=== PATIENT | male | born 1950 | race Caucasian/White ===

== ENCOUNTER 2018-09-01 09:30 | Outpatient (CLI) | payer MEDICARE ==
[2018-09-01] MEDS ORDERED: IPRA15SP NAS (10:23)
[2018-09-01] MEDS ORDERED: SIMV40TA3 PO (10:23)
[2018-09-01] MEDS ORDERED: DILT30TA33 PO (10:23)
[2018-09-01] MEDS ORDERED: HYDROCHLOR EACHEYE (10:23)
[2018-09-01] MEDS ORDERED: HYPR10GE5 EACHEYE (10:23)
[2018-09-01] MEDS ORDERED: [UNRECOGNIZED DRUG - OTHER] PO (10:23)
[2018-09-01] MEDS ORDERED: CARB15DR59 EACHEYE (10:23)
[2018-09-01] MEDS ORDERED: ZOLP12.54 PO (10:23)
[2018-09-01] MEDS ORDERED: CHOL200052 PO (10:23)
[2018-09-01] MEDS ORDERED: ASPI81TA45 PO (10:23)
[2018-09-01] MEDS ORDERED: DILT120C80 PO (10:23)
[2018-09-01 10:53] LABS: BASOPHILS # (AUTO) 0.04 x10^3/uL (0-0.1); BASOPHILS % (AUTO) 1 % (0-1); EOSINOPHILS # (AUTO) 0.07 x10^3/uL (0-0.4); EOSINOPHILS % (AUTO) 1 % (1-7); LYMPHOCYTES # (AUTO) 1.71 x10^3/uL (1-3.4); LYMPHOCYTES % (AUTO) 26 % (22-44); MD NO; MEAN CORPUSCULAR HEMOGLOBIN 30.5 pg (27.5-34.5); MEAN CORPUSCULAR HGB CONC 32.6 g/dL (33.2-36.2); MEAN CORPUSCULAR VOLUME 93.3 fL (81-97); MEAN PLATELET VOLUME 8.5 fL (7.4-10.4); MONOCYTES # (AUTO) 0.87 x10^3/uL (0.2-0.8); MONOCYTES % (AUTO) 13 % (2-9); NEUTROPHILS # (AUTO) 3.98 x10^3/uL (1.8-6.8); NEUTROPHILS % (AUTO) 60 % (42-75); PLATELET COUNT 358 x10^3/uL (130-400); RED BLOOD COUNT 4.51 x10^6/uL (4.38-5.82); RED CELL DISTRIBUTION WIDTH 15.1 % (9.4-14.8)
[2018-09-01 11:27] LABS: CHLORIDE 110 mmol/L (98-107)
[2018-09-01 12:03] LABS: ANION GAP 11 mmol/L (5-15); CALCIUM 8.7 mg/dL (8.5-10.1); CREATININE 0.82 mg/dL (0.7-1.3)
== END 2018-09-01 23:59 | disposition home or self-care (01) ==
LOC: STAR 09:30
PROVIDERS: ATTEND Internal Medicine Cardiovascular Disease
DX: Z01.810 Encounter for preprocedural cardiovascular examination (principal); I48.91 Unspecified atrial fibrillation; Z79.899 Other long term (current) drug therapy
CPT/HCPCS: 36415; 80048; 85025

== ENCOUNTER → 2018-09-01 | Outpatient (CLI) | payer MEDICARE ==
[~2018-09-01] MED LIST: ASPI81TA45 PO; CARB15DR59 EACHEYE; CHOL200052 PO; DILT120C80 PO; DILT30TA33 PO; HYDROCHLOR EACHEYE; HYPR10GE5 EACHEYE; IPRA15SP NAS; OMNIPAQUE 350 MG/ML, 150 ML BOTTLE ONE; SIMV40TA3 PO; ZOLP12.54 PO; [UNRECOGNIZED DRUG - OTHER] PO
== END | disposition home or self-care (01) ==
LOC: CFH 08:16
PROVIDERS: ATTEND Internal Medicine Cardiovascular Disease
DX: K44.9 Diaphragmatic hernia without obstruction or gangrene (principal); I48.91 Unspecified atrial fibrillation; I51.7 Cardiomegaly; Z79.899 Other long term (current) drug therapy
CPT/HCPCS: 71046; 75572; 82565; Q9967

== ENCOUNTER 2018-09-06 06:08 | Observation (INO) | payer MEDICARE ==
[2018-09-01 10:01] VITALS: BP 134/84
[~2018-09-06] VITALS: Ht 167.6 cm; Wt 84.5 kg
[~2018-09-06 06:08] MED LIST changes: -OMNIPAQUE 350 MG/ML, 150 ML BOTTLE ONE
[2018-09-06] MEDS ORDERED: SODIUM CHLORIDE 0.9% 1,000 ML IV SCH (06:15)
[2018-09-06] MEDS ORDERED: SODIUM CHLORIDE 0.9% 1,000 ML IV ONE (06:30)
[2018-09-06] MEDS ORDERED: LIDOCAINE 1%, 20ML ONE (06:51)
[2018-09-06] MEDS ORDERED: PROTAMINE SULFATE 10 MG/ML, 5ML ONE (07:52)
[2018-09-06] MEDS ORDERED: FENTANYL PF 250 MCG/5ML ONE (08:00)
[2018-09-06] MEDS ORDERED: MIDAZOLAM 1 MG/ML, 2ML ONE (08:00)
[2018-09-06] MEDS ORDERED: SUCCINYLCHOLINE 20 MG/ML, 10ML ONE (08:05)
[2018-09-06] MEDS ORDERED: PROPOFOL 10 MG/ML, 20ML ONE (10:09)
[2018-09-06] MEDS ORDERED: ROCURONIUM 10MG/ML,5ML ONE (10:09)
[2018-09-06] MEDS ORDERED: ONDANSETRON 2MG/ML, 2ML ONE (10:10)
[2018-09-06] MEDS ORDERED: HEPARIN 1,000 UNITS/ML, 10ML ONE ×3 (10:10)
[2018-09-06] MEDS ORDERED: DEXAMETHASONE 4 MG/ML, 1ML ONE (10:10)
[2018-09-06] MEDS ORDERED: APIXABAN 5 MG TABLET ONE (12:42)
[2018-09-06] MEDS ORDERED: ZOLPIDEM 10MG TABLET PO PRN (13:00)
[2018-09-06] MEDS ORDERED: PROMETHAZINE 12.5 MG SUPP PR PRN (13:00)
[2018-09-06] MEDS ORDERED: EPHEDRINE 50 MG/ML, 1ML IVPush PRN (13:00)
[2018-09-06] MEDS ORDERED: MORPHINE SULFATE 4 MG/ML, 1ML IVPush PRN (13:00)
[2018-09-06] MEDS ORDERED: FENTANYL PF 100 MCG/2ML IV PRN (13:00)
[2018-09-06] MEDS ORDERED: MEPERIDINE/PF 25MG/0.5ML IVPush PRN (13:00)
[2018-09-06] MEDS ORDERED: DIPHENHYDRAMINE 50 MG/ML, 1ML IVPush PRN (13:00)
[2018-09-06] MEDS ORDERED: OXYcodone 5 MG/5 ML ORAL.SOL UDC PO PRN (13:00)
[2018-09-06] MEDS ORDERED: ONDANSETRON ODT 8 MG PO PRN (13:00)
[2018-09-06] MEDS ORDERED: DIAZEPAM 5 MG/ML, 2ML IVPush PRN (13:00)
[2018-09-06] MEDS ORDERED: DILTIAZEM 30 MG TABLET PO SCH (13:00)
[2018-09-06] MEDS ORDERED: IPRATROPIUM NASAL 0.03%, 30ML NAS PRN (13:00)
[2018-09-06] MEDS ORDERED: PROMETHAZINE 25 MG SUPP PR PRN (13:00)
[2018-09-06] MEDS ORDERED: MIDAZOLAM 1 MG/ML, 2ML IV PRN (13:00)
[2018-09-06] MEDS ORDERED: ACETAMINOPHEN 325 MG TABLET PO PRN ×2 (13:00)
[2018-09-06] MEDS ORDERED: PROMETHAZINE 25 MG/ML, 1ML IV PRN (13:00)
[2018-09-06] MEDS ORDERED: ONDANSETRON 2MG/ML, 2ML IV PRN (13:00)
[2018-09-06] MEDS ORDERED: hydrALAzine 20 MG/ML, 1ML IV PRN (13:00)
[2018-09-06] MEDS ORDERED: EPHEDRINE 50 MG/ML, 1ML IM PRN (13:00)
[2018-09-06] MEDS: APIXABAN 5 MG TABLET PO SCH (13:19)
[2018-09-06 14:31] VITALS: BP 103/64
[2018-09-06] MEDS ORDERED: ARTIFICIAL TEARS 15 DROP/ML BOTTLE EACHEYE SCH (16:00)
[2018-09-06] MEDS ORDERED: ZOLPIDEM PO PRN (17:00)
[2018-09-06] MEDS: ARTIFICIAL TEARS 15 DROP/ML BOTTLE EACHEYE SCH ×2 (17:00→20:05)
[2018-09-06 19:06] VITALS: BP 108/70
[2018-09-06] MEDS ORDERED: ATORVASTATIN 40 MG TABLET PO SCH (21:00)
[2018-09-06] MEDS ORDERED: SIMVASTATIN 40 MG TABLET PO SCH (21:00)
[2018-09-07 00:31] VITALS: BP 117/69
[2018-09-07] MEDS: ARTIFICIAL TEARS 15 DROP/ML BOTTLE EACHEYE SCH (04:59)
[2018-09-07 07:45] VITALS: BP 127/83
[2018-09-07] MEDS ORDERED: APIX5TAB PO (08:29)
[2018-09-07] MEDS ORDERED: DILTIAZEM 120 MG CAP.ER.24H HOMEMEDPO SCH (09:00)
[2018-09-07] MEDS ORDERED: DILTIAZEM 120 MG CAP.ER.24H PO SCH (09:00)
[2018-09-07] MEDS ORDERED: ASPIRIN 81 MG TABLET EC PO SCH ×2 (09:00)
[2018-09-07] MEDS ORDERED: CHOLECALCIFEROL 1,000 UNIT TABLET PO SCH (09:00)
[2018-09-07] MEDS: APIXABAN 5 MG TABLET PO SCH (09:00)
== END 2018-09-07 11:10 | disposition home or self-care (01) ==
LOC: CACL 06:08 → ORIP 12:40 → 5SO 14:32 → DCLOUNGE 09-07 10:56
PROVIDERS: ADMIT Internal Medicine Cardiovascular Disease; ATTEND Internal Medicine Cardiovascular Disease
DX: I48.91 Unspecified atrial fibrillation (principal); I48.92 Unspecified atrial flutter
CPT/HCPCS: 85347; 93306; 93312; 93321; 93325; 93621; 93655; 93656; 93657; 93662; C1730; C1731; C1732; C1759; C1766; C1893; C1894; G0378; J0330; J1100; J1644; J2250; J2405; J2704; J2720; J3010; J3490; 96374; 96375

== ENCOUNTER 2020-10-02 06:01 | Inpatient (IN) | payer MEDICARE ==
[~2020-10-02] VITALS: Ht 167.6 cm; Wt 85.5 kg
[~2020-10-02 06:01] MED LIST changes: +APIX5TAB PO; +SIMV40TA20 PO; -SIMV40TA3 PO; -ZOLP12.54 PO; +ZOLP12.56 PO
[2020-10-02] MEDS ORDERED: SODIUM CHLORIDE 0.9% 1,000 ML IV SCH (06:30)
[2020-10-02] MEDS ORDERED: DILT-8 PO (06:44)
[2020-10-02] MEDS ORDERED: ZOLP10TA PO (06:45)
[2020-10-02 07:22] LABS: BASOPHILS % (AUTO) 1 % (0-1); EOSINOPHILS % (AUTO) 1 % (1-7); LYMPHOCYTES % (AUTO) 24 % (22-44); MEAN CORPUSCULAR HEMOGLOBIN 31.5 pg (27.5-34.5); MEAN CORPUSCULAR HGB CONC 34.1 g/dL (33.2-36.2); MEAN PLATELET VOLUME 7.5 fL (7.4-10.4); MONOCYTES % (AUTO) 13 % (2-9); NEUTROPHILS % (AUTO) 61 % (42-75); PLATELET COUNT 344 x10^3/uL (130-400); RED BLOOD COUNT 4.25 x10^6/uL (4.38-5.82); RED CELL DISTRIBUTION WIDTH 15.5 % (9.4-14.8)
[2020-10-02 07:27] LABS: ALANINE AMINOTRANSFERASE 23 U/L (12-78); ALBUMIN 3.4 g/dL (3.4-5.0); ANION GAP 6 mmol/L (5-15); CALCIUM 8.3 mg/dL (8.5-10.1); CHLORIDE 111 mmol/L (98-107); CREATININE 0.77 mg/dL (0.7-1.3)
[2020-10-02 07:30] LABS: INTERNATIONAL NORMALIZED RATIO 0.99 (0.93-1.1); PROTHROMBIN TIME 10.6 Seconds (9.6-11.5)
[2020-10-02 07:37] LABS: ALKALINE PHOSPHATASE 59 U/L (45-117); BILIRUBIN,TOTAL 0.6 mg/dL (0.2-1.0); TOTAL PROTEIN 6.8 g/dL (6.4-8.2)
[2020-10-02] MEDS ORDERED: FENTANYL PF 250 MCG/5ML ONE (08:10)
[2020-10-02] MEDS ORDERED: MIDAZOLAM 1 MG/ML, 2ML ONE (08:10)
[2020-10-02] MEDS ORDERED: DEXAMETHASONE 4 MG/ML, 1ML ONE ×2 (08:39→09:08)
[2020-10-02] MEDS ORDERED: HEPARIN 1,000 UNITS/ML, 10ML ONE ×3 (09:08→09:52)
[2020-10-02] MEDS ORDERED: PROPOFOL 10 MG/ML, 20ML ONE (09:08)
[2020-10-02] MEDS ORDERED: ROCURONIUM 10MG/ML,5ML ONE (09:08)
[2020-10-02] MEDS ORDERED: MIDAZOLAM 1 MG/ML, 2ML IV PRN (12:00)
[2020-10-02] MEDS ORDERED: OXYcodone 5 MG/5 ML ORAL.SOL UDC PO PRN (12:00)
[2020-10-02] MEDS ORDERED: hydrALAzine 20 MG/ML, 1ML IV PRN (12:00)
[2020-10-02] MEDS ORDERED: LABETALOL 5MG/ML, 20ML IV PRN (12:00)
[2020-10-02] MEDS ORDERED: PROMETHAZINE 12.5 MG SUPP PR PRN (12:00)
[2020-10-02] MEDS ORDERED: DIAZEPAM 5 MG/ML, 2ML IVPush PRN (12:00)
[2020-10-02] MEDS ORDERED: ACETAMINOPHEN 325 MG TABLET PO PRN (12:00)
[2020-10-02] MEDS ORDERED: FENTANYL PF 100 MCG/2ML IV PRN (12:00)
[2020-10-02] MEDS ORDERED: MEPERIDINE/PF 25MG/0.5ML IVPush PRN (12:00)
[2020-10-02] MEDS ORDERED: ONDANSETRON 2MG/ML, 2ML IVPush PRN (12:00)
[2020-10-02] MEDS ORDERED: PROMETHAZINE 25 MG/ML, 1ML IVPush PRN (12:00)
[2020-10-02] MEDS ORDERED: EPHEDRINE 50 MG/ML, 1ML IVPush PRN (12:00)
[2020-10-02] MEDS ORDERED: ALBUTEROL SULFATE 2.5 MG/3 ML NPPB PRN (12:00)
[2020-10-02] MEDS ORDERED: HYDROmorphone 1 MG/ML, 1ML INJ IVPush PRN (12:00)
[2020-10-02] MEDS ORDERED: DIPHENHYDRAMINE 50 MG/ML, 1ML IVPush PRN ×2 (12:00)
[2020-10-02] MEDS ORDERED: FENTANYL PF 100 MCG/2ML ONE (12:04)
[2020-10-02] MEDS ORDERED: APIXABAN 5 MG TABLET ONE (12:24)
[2020-10-02] MEDS ORDERED: APIXABAN 5 MG TABLET PO ONE (12:30)
[2020-10-02] MEDS: COLCHICINE 0.6 MG CAPSULE PO SCH ×2 (16:09→21:16)
[2020-10-02] MEDS: SOTALOL 80MG TABLET PO SCH (17:59)
[2020-10-02 21:12] VITALS: BP 114/68
[2020-10-02] MEDS: ZOLPIDEM 10MG TABLET PO PRN (21:16)
[2020-10-02] MEDS: APIXABAN 5 MG TABLET PO SCH (21:16)
[2020-10-02] MEDS: SIMVASTATIN 40 MG TABLET PO SCH (21:17)
[2020-10-03] MEDS ORDERED: GLYCOPYRROLATE 0.2MG/1ML, 5ML ONE
[2020-10-03] MEDS ORDERED: NEOSTIGMINE 1 MG/ML, 10ML ONE
[2020-10-03] MEDS ORDERED: ONDANSETRON 2MG/ML, 2ML ONE
[2020-10-03 02:52] VITALS: BP 117/72
[2020-10-03] MEDS: SOTALOL 80MG TABLET PO SCH (06:02)
[2020-10-03 08:28] VITALS: BP 125/75
[2020-10-03] MEDS ORDERED: [UNRECOGNIZED DRUG - OTHER] PO SCH (09:00)
[2020-10-03] MEDS: CHOLECALCIFEROL 1,000 UNIT TABLET PO SCH (09:28)
[2020-10-03] MEDS: APIXABAN 5 MG TABLET PO SCH ×2 (09:28→21:20)
[2020-10-03] MEDS: COLCHICINE 0.6 MG CAPSULE PO SCH ×2 (09:28→21:20)
[2020-10-03 15:44] VITALS: BP 106/69
[2020-10-03] MEDS: SOTALOL 120MG TABLET PO SCH (18:12)
[2020-10-03 20:10] VITALS: BP 127/73
[2020-10-03] MEDS: SIMVASTATIN 40 MG TABLET PO SCH (21:21)
[2020-10-03] MEDS: ZOLPIDEM 10MG TABLET PO PRN (21:23)
[2020-10-04 00:31] VITALS: BP 143/74
[2020-10-04] MEDS: SOTALOL 120MG TABLET PO SCH (06:14)
[2020-10-04 07:39] VITALS: BP 137/77
[2020-10-04] MEDS: APIXABAN 5 MG TABLET PO SCH (09:03)
[2020-10-04] MEDS: CHOLECALCIFEROL 1,000 UNIT TABLET PO SCH (09:03)
[2020-10-04] MEDS: COLCHICINE 0.6 MG CAPSULE PO SCH (09:03)
[2020-10-04] MEDS ORDERED: SOTA80TA18 PO (10:17)
[2020-10-04] MEDS ORDERED: COLC0.6C3 PO (10:17)
[2020-10-04] MEDS ORDERED: APIX5TAB PO (10:17)
== END 2020-10-04 11:41 | disposition home or self-care (01) | DRG 274 ==
LOC: CACL 06:01 → ORIP 11:56 → 5SO 14:42 → OBSVTOIN 10-03 11:17 → DCLOUNGE 10-04 11:25
PROVIDERS: ADMIT Internal Medicine Cardiovascular Disease; ATTEND Internal Medicine Cardiovascular Disease
PROC: 02K83ZZ Map Conduction Mechanism, Percutaneous Approach (ICD-10-PCS; 2020-10-02)
PROC: 4A0234Z Measurement of Cardiac Electrical Activity, Percutaneous Approach (ICD-10-PCS; 2020-10-02)
PROC: 4A023N7 Measurement of Cardiac Sampling and Pressure, Left Heart, Percutaneous Approach (ICD-10-PCS; 2020-10-02)
PROC: B245ZZZ Ultrasonography of Left Heart (ICD-10-PCS; 2020-10-02)
PROC: 02573ZK Destruction of Left Atrial Appendage, Percutaneous Approach (ICD-10-PCS; principal; 2020-10-02 08:00)
DX: I48.92 Unspecified atrial flutter (principal); D68.69 Other thrombophilia; E78.5 Hyperlipidemia, unspecified; I45.10 Unspecified right bundle-branch block; Z20.822 Contact with and (suspected) exposure to COVID-19; I48.91 Unspecified atrial fibrillation
CPT/HCPCS: 36415; 71046; 80053; 84443; 85025; 85347; 85610; 93005; 93308; 93312; 93321; 93325; 93613; 93655; 93656; 93657; 93662; C1732; C1766; C1893; C1894; G0378; J1100; J1644; J2250; J2405; J2704; J2710; J3010; U0005; C1730; C1759; U0003